=== PATIENT | female | born 1965 | race Caucasian/White ===

== ENCOUNTER 2019-05-07 13:44 | Outpatient (RCR) | payer OTHER, SELFPAY ==
[2019-05-07 13:40] VITALS: BP 156/44; PULSE 68; RESP 20; TEMP 36.7; BMI 58.3
--- NOTE | 2019-05-07 17:01 | HP.PCM_ITS ---
(1) Diabetic ulcer of right foot associated with type 1 diabetes mellitus Status: Chronic Current Visit: Yes Qualifiers: Diabetic foot ulcer location: midfoot Non-pressure ulcer stage: with fat layer exposed Qualified Code(s): E10.621 - Type 1 diabetes mellitus with foot ulcer; L97.412 - Non-pressure chronic ulcer of right heel and midfoot with fat layer exposed Code(s): E10.621 - Type 1 diabetes mellitus with foot ulcer; L97.519 - Non- pressure chronic ulcer of other part of right foot with unspecified severity (2) Diabetic ulcer of toe of left foot associated with type 1 diabetes mellitus Status: Chronic Current Visit: Yes Qualifiers: Non-pressure ulcer stage: with fat layer exposed Qualified Code(s): E10.621 - Type 1 diabetes mellitus with foot ulcer; L97.522 - Non-pressure chronic ulcer of other part of left foot with fat layer exposed Code(s): E10.621 - Type 1 diabetes mellitus with foot ulcer; L97.529 - Non- pressure chronic ulcer of other part of left foot with unspecified severity (3) Ulcer of right lower extremity with fat layer exposed Status: Chronic Current Visit: Yes Code(s): L97.912 - Non-pressure chronic ulcer of unspecified part of right lower leg with fat layer exposed (4) Ulcer of left lower extremity with fat layer exposed Status: Chronic Current Visit: Yes Code(s): L97.922 - Non-pressure chronic ulcer of unspecified part of left lower leg with fat layer exposed (5) Bilateral lower extremity edema Status: Chronic Current Visit: Yes Code(s): R60.0 - Localized edema (6) Type 1 diabetes mellitus Status: Chronic Current Visit: Yes Qualifiers: Diabetes mellitus complication status: with skin complications Diabetes mellitus complication detail: with foot ulcer Qualified Code(s): E10.621 - Type 1 diabetes mellitus with foot ulcer; L97.509 - Non-pressure chronic ulcer o f other part of unspecified foot with unspecified severity Code(s): E10.9 - Type 1 diabetes mellitus without complications (7) Diabetic ulcer of toe of right foot associated with type 1 diabetes mellitus Status: Chronic Current Visit: Yes Qualifiers: Non-pressure ulcer stage: with fat layer exposed Qualified Code(s): E10.621 - Type 1 diabetes mellitus with foot ulcer; L97.512 - Non-pressure chronic ulcer of other part of right foot with fat layer exposed Code(s): E10.621 - Type 1 diabetes mellitus with foot ulcer; L97.519 - Non- pressure chronic ulcer of other part of right foot with unspecified severity (8) PVD (peripheral vascular disease) Status: Chronic Current Visit: Yes Code(s): I73.9 - Peripheral vascular disease, unspecified (9) Morbid obesity with BMI of 50.0-59.9, adult Status: Chronic Current Visit: Yes Code(s): E66.01 - Morbid (severe) obesity due to excess calories; Z68.43 - Body mass index (BMI) 50.0-59.9, adult (10) Excoriation of left lower leg Status: Chronic Current Visit: Yes Qualifiers: Encounter type: initial encounter Qualified Code(s): S80.812A - Abrasion, l eft lower leg, initial encounter Code(s): S80.812A - Abrasion, left lower leg, initial encounter (11) Excoriation of right lower leg Status: Chronic Current Visit: Yes Qualifiers: Encounter type: initial encounter Qualified Code(s): S80.811A - Abrasion, right lower leg, initial encounter Code(s): S80.811A - Abrasion, right lower leg, initial encounter History of Present Illness Date of Service: 05/07/19 Chief Complaint: wounds of bilateral legs and feet History of Wound: Patient is a pleasant 54-year-old female who [facility] for an initial evaluation of open wounds to bilateral lower extremities and feet. Patient reports these wounds have been present for approximately 1 year now. She feels these wounds, as well as the irritation and excoriation of her bilateral lower extremities, presented after the use of Tinactin antifungal spray, which she was using for self treatment of athlete's foot. She was covering wounds with gauze as needed for drainage. Throughout the past year, patient has been primarily homebound. She lives alone. She has difficulty with ambulation. She does not drive, and requires transportation. She struggles to provide self-care, including bathing and grooming. She has neither in the past or present received home health care. She has been living a reclusive lifestyle, until several weeks ago when she decided to reestablish with her primary care provider, Dr. Leslie Lorenzo at [facility]. Dr. Lorenzo placed patient in Unna boots, which patient reports was helpful at reducing the dryness and excoriation of her bilateral lower extremities. She was also started on a 10-day course of doxycycline, and is currently on day #3, which she states has improved the redness and swelling in her legs. Dr. Lorenzo referred the patient to the [facility] for further management of her wounds. The patient reports itching of bilateral lower extremities. She also reports moderate serous drainage from wounds of bilateral lower extremities. The patient denies any fever, chills, nausea, or vomiting. She does report diarrhea as a side effect of the doxycycline. She denies any increasing pain, redness, swelling, or purulent/foul-smelling drainage from affected area. Patient has a past medical history of type 1 diabetes mellitus, with an A1c of 6.7% 2 weeks ago. Significant PMH also includes coronary artery bypass in 2017, hypertension, anxiety, depression, and morbid obesity. She has lab work to be completed next week by her primary care provider, including a CBC, CMP, and lipid panel. Past Medical History Past Medical History: Chronic Problems Ulcer of right lower extremity with fat layer exposed (Chronic) Ulcer of left lower extremity with fat layer exposed (Chronic) Bilateral lower extremity edema (Chronic) Type 1 diabetes mellitus (Chronic) Diabetic ulcer of right foot associated with type 1 diabetes mellitus (Chronic) Diabetic ulcer of toe of left foot associated with type 1 diabetes mellitus (Chronic) Diabetic ulcer of toe of right foot associated with type 1 diabetes mellitus (Chronic) PVD (peripheral vascular disease) (Chronic) Morbid obesity with BMI of 50.0-59.9, adult (Chronic) Excoriation of left lower leg (Chronic) Excoriation of right lower leg (Chronic) Surgical History: coronary bypass surgery - 2017 Allergies/Adverse Reactions: Allergies acetaminophen [From Vicodin] Allergy (Verified 05/08/19 10:53) Unknown hydrocodone [From Vicodin] Allergy (Verified 05/08/19 10:53) Unknown tolnaftate [From Tinactin] Allergy (Verified 05/08/19 10:53) Rash Home Medications: Ambulatory Orders Medication Instructions Recorded Aspirin [Aspir 81] 81 mg PO 05/07/19 Atorvastatin Calcium 20 mg PO 05/07/19 Clopidogrel Bisulfate [Clopidogrel] 75 mg PO 05/07/19 Furosemide [Lasix] 20 mg PO DAILY 05/07/19 Ibuprofen 400 mg PO 05/07/19 Insulin NPH Human Isophane 50 unit SQ 05/07/19 [Novolin N] Insulin Regular, Human [Novolin R] 50 05/07/19 Lisinopril 40 mg PO 05/07/19 Metoprolol Tartrate 50 mg PO 05/07/19 Sertraline HCl 100 mg PO 05/07/19 Smoking Status: Former smoker Review of Systems Constitutional: Denies: Chills, Fever, Weight Change Eyes: Denies: Pain, Vision Change HEENT: Denies: Difficulty Hearing, Difficulty Swallowing, Sinus Congestion Cardiovascular: Denies: Chest Pain, Palpitations Respiratory: Denies: Cough, Shortness of Breath, Wheezing Gastrointestinal: Reports: Diarrhea. Denies: Abdominal Pain, Nausea, Vomiting Genitourinary: Denies: Dysuria, Hematuria Musculoskeletal: Reports: Leg Pain Skin: Reports: Dryness, Pruritis - of BLE, Rash - dry, excoriated skin of BLE, Wounds - of BLE and feet Neurological: Denies: Numbness, Tingling Psychiatric: Reports: Anxiety, Depression Hematologic/ Lymphatic: Denies: Easy Bruising, Easy Bleeding - Physical Exam Vital Signs Temp Pulse Resp BP 98.1 F 68 20 H 156/44 H 05/07/19 13:40 05/07/19 13:40 05/07/19 13:40 05/07/19 13:40 General: Alert, Oriented x3, Cooperative, No apparent distress HEENT: Atraumatic, EOMI, Normocephalic Oral: Moist Mucosa Neck: Supple, No JVD, Trachea Midline Lungs: Clear to auscultation, Normal air movement, No rhonchi, No wheeze, No rales Cardiovascular: Regular rate, Regular Rhythm Abdomen: Bowel Sounds Present, Soft, Non Tender, Obese Extremities: No clubbing, No cyanosis, Capillary Refill Less than 3 Seconds, Diminished Peripheral Pulses, Edema - 1+ pitting edema in BLE Skin: Ulcer/ Wound - Diabetic foot ulcers of left dorsal great toe, right second dorsal toe, and right medial foot. Chronic leg ulcers of medial left lower extremity, medial right lower extremity, and lateral right lower extremity. Diffuse mild erythema and moderate excoriation of bilateral lower extremities. No foul-smelling or purulent drainage from wounds, no warmth to palpation. Bilateral lower extremities are tender to palpation. No tunneling or undermining of wounds, no probing to bone. Wound Measurements and Assessment WC - Nurse 1 - General Ulcer Measurement Start: 05/07/19 13:39 Freq: Status: Active Protocol: Activity Type Activity Date Activity User E-Sign Co-Sign Detail Recorded Client Recorded Date Recorded By Document 05/07/19 13:40 DL [id number] 05/07/19 14:23 DL 05/07/19 13:40 Wound Center Nurse 1 [Ulcer Assessment] #5 LLE Medial -Current Size (cm) - Length 1.7 -Current Size (cm) - Width 0.7 -Current Size (cm) - Depth 0.2 -Total Square Cm 1.19 -Photo Taken Yes -Classification - Thickness Full Thickness without Exposed Support Structure -Exudate Amt Small -Exudate Type Serosanguineous -Wound Margin Indistinct, Non -Visible -Granulation Amt Small (1-33%) -Granulation Quality [place] -Necrosis Amt Large (67-100%) -Necrotic Tissue Type Adherent Slough -Structure Exposed N/A -Texture (Heather-wound Skin Appearance) Scarring -Moisture (Heather-wound Skin Appearance Dry/Scaly ) -Color (Heather-wound Skin Appearance) Erythema, Hemosiderin Staining,Rubor -Temperature (Heather-wound Skin No Abnormality Appearance) (Pt Warm) -Tenderness on Palpation (Heather-wound No Skin Appearance) -Ulcer Cleansing Wound Cleanser -Foul Odor after Cleansing No -Anesthetic Used 4% Lidocaine Solution #4 R 2nd toe Dorsal -Current Size (cm) - Length 0.6 -Current Size (cm) - Width 0.7 -Current Size (cm) - Depth 0.2 -Total Square Cm 0.42 -Photo Taken Yes -Classification - Thickness Full Thickness without Exposed Support Structure -Exudate Amt Small -Exudate Type Serosanguineous -Wound Margin Distinct, Outline Attached -Granulation Amt Medium (34-66%) -Granulation Quality Pale -Necrosis Amt Medium (34-66%) -Necrotic Tissue Type Adherent Slough -Structure Exposed N/A -Texture (Heather-wound Skin Appearance) Scarring -Moisture (Heather-wound Skin Appearance Dry/Scaly ) -Color (Heather-wound Skin Appearance) Hemosiderin Staining -Temperature (Heather-wound Skin No Abnormality Appearance) (Pt Warm) -Tenderness on Palpation (Heather-wound No Skin Appearance) -Ulcer Cleansing Wound Cleanser -Foul Odor after Cleansing No -Anesthetic Used 4% Lidocaine Solution #3 R Foot Med -Current Size (cm) - Length 4.1 -Current Size (cm) - Width 1 -Current Size (cm) - Depth 0.2 -Total Square Cm 4.1 -Photo Taken Yes -Classification - Thickness Full Thickness without Exposed Support Structure -Exudate Amt Small -Exudate Type Serosanguineous -Wound Margin Distinct, Outline Attached -Granulation Amt Large (67-100%) -Granulation Quality Red -Necrosis Amt Small (1-33%) -Necrotic Tissue Type Adherent Slough -Structure Exposed N/A -Texture (Heather-wound Skin Appearance) Scarring -Moisture (Heather-wound Skin Appearance Dry/Scaly ) -Color (Heather-wound Skin Appearance) Hemosiderin Staining -Temperature (Heather-wound Skin No Abnormality Appearance) (Pt Warm) -Tenderness on Palpation (Heather-wound No Skin Appearance) -Ulcer Cleansing Wound Cleanser -Foul Odor after Cleansing No -Anesthetic Used 4% Lidocaine Solution #2 RLE Med -Current Size (cm) - Length 1 -Current Size (cm) - Width 0.4 -Current Size (cm) - Depth 0.2 -Total Square Cm 0.4 -Photo Taken Yes -Classification - Thickness Full Thickness without Exposed Support Structure -Exudate Amt None Present -Wound Margin Thickened -Granulation Amt Large (67-100%) -Granulation Quality [place] -Necrosis Amt Small (1-33%) -Necrotic Tissue Type Adherent Slough -Structure Exposed N/A -Texture (Heather-wound Skin Appearance) Scarring -Moisture (Heather-wound Skin Appearance Dry/Scaly ) -Color (Heather-wound Skin Appearance) Hemosiderin Staining,Rubor -Temperature (Heather-wound Skin No Abnormality Appearance) (Pt Warm) -Tenderness on Palpation (Heather-wound No Skin Appearance) -Ulcer Cleansing Wound Cleanser -Foul Odor after Cleansing No -Anesthetic Used 4% Lidocaine Solution #1 RLE Lat -Current Size (cm) - Length 2.1 -Current Size (cm) - Width 0.5 -Current Size (cm) - Depth 0.1 -Total Square Cm 1.05 -Photo Taken Yes -Classification - Thickness Full Thickness without Exposed Support Structure -Exudate Amt None Present -Wound Margin Distinct, Outline Attached -Granulation Amt None Present (0 %) -Necrosis Amt Large (67-100%) -Necrotic Tissue Type Adherent Slough -Structure Exposed Fat Layer Exposed -Texture (Heather-wound Skin Appearance) Scarring -Moisture (Heather-wound Skin Appearance Dry/Scaly ) -Color (Heather-wound Skin Appearance) Erythema, Hemosiderin Staining -Temperature (Heather-wound Skin No Abnormality Appearance) (Pt Warm) -Tenderness on Palpation (Heather-wound Yes Skin Appearance) -Ulcer Cleansing Wound Cleanser -Foul Odor after Cleansing No -Anesthetic Used 4% Lidocaine Solution [Edema Assessment] -Right Calf (cm) 47.5 -Right Ankle (cm) 24.5 -Left Calf (cm) 48 -Left Ankle (cm) 29.5 WC - Nurse 2 - General Ulcer CM Notes Start: 05/07/19 13:39 Freq: Status: Active Protocol: Activity Type Activity Date Activity User E-Sign Co-Sign Detail Recorded Client Recorded Date Recorded By Document 05/07/19 15:38 DV [id number] 05/07/19 16:04 DV 05/07/19 15:38 Wound Center Nurse 2 [Procedure/Treatment] #6 Left Dorsal Grt Toe -Time 16:01 -Correct Patient Yes -Correct Side, Site, Position Yes -Correct Procedure Yes -Procedure Performed Yes -Type of Procedure Debridement -Clinical Debridement Subcutaneous -Post Debridement Size (cm) - Length 2.0 -Post Debridement Size (cm) - Width 1.0 -Post Debridement Size (cm) - Depth 0.2 -Total Square Cm 2.00 -Wound/Ulcer Outcome Not Healed -Ulcer Cleansing Rinsed/ Irrigated with Saline -Foul Odor after Cleansing No -Bioengineered Tissue No -Bleeding Controlled with Pressure -Offloading No -Treatment Response Procedure Tolerated Well #5 LLE Medial -Time 15:54 -Correct Patient Yes -Correct Side, Site, Position Yes -Correct Procedure Yes -Procedure Performed Yes -Type of Procedure Debridement -Clinical Debridement Subcutaneous -Post Debridement Size (cm) - Length 1.5 -Post Debridement Size (cm) - Width 1.7 -Post Debridement Size (cm) - Depth 0.1 -Total Square Cm 2.55 -Wound/Ulcer Outcome Not Healed -Ulcer Cleansing Rinsed/ Irrigated with Saline -Foul Odor after Cleansing No -Bioengineered Tissue No -Bleeding Controlled with Pressure -Offloading No -Treatment Response Procedure Tolerated Well #4 R 2nd toe Dorsal -Time 15:42 -Correct Patient Yes -Correct Side, Site, Position Yes -Correct Procedure Yes -Procedure Performed Yes -Type of Procedure Debridement -Clinical Debridement Subcutaneous -Post Debridement Size (cm) - Length 0.7 -Post Debridement Size (cm) - Width 1.1 -Post Debridement Size (cm) - Depth 0.2 -Total Square Cm 0.77 -Wound/Ulcer Outcome Not Healed -Ulcer Cleansing Rinsed/ Irrigated with Saline -Foul Odor after Cleansing No -Bioengineered Tissue No -Bleeding Controlled with Pressure -Treatment Response Procedure Tolerated Well #3 R Foot Med -Time 15:39 -Correct Patient Yes -Correct Side, Site, Position Yes -Correct Procedure Yes -Procedure Performed Yes -Type of Procedure Debridement -Clinical Debridement Subcutaneous -Post Debridement Size (cm) - Length 4.5 -Post Debridement Size (cm) - Width 1.2 -Post Debridement Size (cm) - Depth 0.2 -Total Square Cm 5.40 -Wound/Ulcer Outcome Not Healed -Ulcer Cleansing Rinsed/ Irrigated with Saline -Foul Odor after Cleansing No -Bioengineered Tissue No #2 RLE Med -Time 15:48 -Correct Patient Yes -Correct Side, Site, Position Yes -Correct Procedure Yes -Procedure Performed Yes -Type of Procedure Debridement -Clinical Debridement Subcutaneous -Post Debridement Size (cm) - Length 1.1 -Post Debridement Size (cm) - Width 0.5 -Post Debridement Size (cm) - Depth 0.1 -Total Square Cm 0.55 -Wound/Ulcer Outcome Not Healed -Ulcer Cleansing Rinsed/ Irrigated with Saline -Foul Odor after Cleansing No -Bioengineered Tissue No -Bleeding Controlled with Pressure -Offloading No -Treatment Response Procedure Tolerated Well #1 RLE Lat -Time 15:44 -Correct Patient Yes -Correct Side, Site, Position Yes -Correct Procedure Yes -Procedure Performed Yes -Type of Procedure Debridement -Clinical Debridement Subcutaneous -Post Debridement Size (cm) - Length 3.0 -Post Debridement Size (cm) - Width 0.8 -Post Debridement Size (cm) - Depth 0.1 -Total Square Cm 2.40 -Wound/Ulcer Outcome Not Healed -Ulcer Cleansing Rinsed/ Irrigated with Saline -Foul Odor after Cleansing No -Bioengineered Tissue No -Bleeding Controlled with Pressure -Offloading No -Treatment Response Procedure Tolerated Well [See Physician Procedure note for Specifics] Pain Scale: 0-10 Numeric [Pain] -Is Patient Pain Free? Yes Musculoskeletal: Tenderness - Bilateral lower extremities tender to palpation/ manipulation Neurological: Unsteady Gait Psych/Mental Status: Normal Affect, Appropriate Debridement Note Post-Debridement Measurements/Treatment WC - Nurse 2 - General Ulcer CM Notes Start: 05/07/19 13:39 Freq: Status: Active Protocol: Activity Type Activity Date Activity User E-Sign Co-Sign Detail Recorded Client Recorded Date Recorded By Document 05/07/19 15:38 DV [id number] 05/07/19 16:04 DV 05/07/19 15:38 Wound Center Nurse 2 #6 Left Dorsal Grt Toe -Time 16:01 -Correct Patient Yes -Correct Side, Site, Position Yes -Correct Procedure Yes -Procedure Performed Yes -Type of Procedure Debridement -Clinical Debridement Subcutaneous -Post Debridement Size (cm) - Length 2.0 -Post Debridement Size (cm) - Width 1.0 -Post Debridement Size (cm) - Depth 0.2 -Total Square Cm 2.00 -Wound/Ulcer Outcome Not Healed -Ulcer Cleansing Rinsed/ Irrigated with Saline -Foul Odor after Cleansing No -Bioengineered Tissue No -Bleeding Controlled with Pressure -Offloading No -Treatment Response Procedure Tolerated Well #5 LLE Medial -Time 15:54 -Correct Patient Yes -Correct Side, Site, Position Yes -Correct Procedure Yes -Procedure Performed Yes -Type of Procedure Debridement -Clinical Debridement Subcutaneous -Post Debridement Size (cm) - Length 1.5 -Post Debridement Size (cm) - Width 1.7 -Post Debridement Size (cm) - Depth 0.1 -Total Square Cm 2.55 -Wound/Ulcer Outcome Not Healed -Ulcer Cleansing Rinsed/ Irrigated with Saline -Foul Odor after Cleansing No -Bioengineered Tissue No -Bleeding Controlled with Pressure -Offloading No -Treatment Response Procedure Tolerated Well #4 R 2nd toe Dorsal -Time 15:42 -Correct Patient Yes -Correct Side, Site, Position Yes -Correct Procedure Yes -Procedure Performed Yes -Type of Procedure Debridement -Clinical Debridement Subcutaneous -Post Debridement Size (cm) - Length 0.7 -Post Debridement Size (cm) - Width 1.1 -Post Debridement Size (cm) - Depth 0.2 -Total Square Cm 0.77 -Wound/Ulcer Outcome Not Healed -Ulcer Cleansing Rinsed/ Irrigated with Saline -Foul Odor after Cleansing No -Bioengineered Tissue No -Bleeding Controlled with Pressure -Treatment Response Procedure Tolerated Well #3 R Foot Med -Time 15:39 -Correct Patient Yes -Correct Side, Site, Position Yes -Correct Procedure Yes -Procedure Performed Yes -Type of Procedure Debridement -Clinical Debridement Subcutaneous -Post Debridement Size (cm) - Length 4.5 -Post Debridement Size (cm) - Width 1.2 -Post Debridement Size (cm) - Depth 0.2 -Total Square Cm 5.40 -Wound/Ulcer Outcome Not Healed -Ulcer Cleansing Rinsed/ Irrigated with Saline -Foul Odor after Cleansing No -Bioengineered Tissue No #2 RLE Med -Time 15:48 -Correct Patient Yes -Correct Side, Site, Position Yes -Correct Procedure Yes -Procedure Performed Yes -Type of Procedure Debridement -Clinical Debridement Subcutaneous -Post Debridement Size (cm) - Length 1.1 -Post Debridement Size (cm) - Width 0.5 -Post Debridement Size (cm) - Depth 0.1 -Total Square Cm 0.55 -Wound/Ulcer Outcome Not Healed -Ulcer Cleansing Rinsed/ Irrigated with Saline -Foul Odor after Cleansing No -Bioengineered Tissue No -Bleeding Controlled with Pressure -Offloading No -Treatment Response Procedure Tolerated Well #1 RLE Lat -Time 15:44 -Correct Patient Yes -Correct Side, Site, Position Yes -Correct Procedure Yes -Procedure Performed Yes -Type of Procedure Debridement -Clinical Debridement Subcutaneous -Post Debridement Size (cm) - Length 3.0 -Post Debridement Size (cm) - Width 0.8 -Post Debridement Size (cm) - Depth 0.1 -Total Square Cm 2.40 -Wound/Ulcer Outcome Not Healed -Ulcer Cleansing Rinsed/ Irrigated with Saline -Foul Odor after Cleansing No -Bioengineered Tissue No -Bleeding Controlled with Pressure -Offloading No -Treatment Response Procedure Tolerated Well Pain Scale: 0-10 Numeric Is Patient Pain Free? Yes Wound debrided: Left dorsal great toe Laterality: Left Wound Grade/Stage: [place] 1 Type of Debridement: Excisional debridement Anesthesia Used: 5% Lidocaine Gel Depth: in the subcutaneous layer Percentage of wound debrided: 100 Instrument Used: 5mm curette Tissue Removed: Slough and devitalized tissue Severity: Fat Layer Exposed Amount of bleeding with debridement: Mild Bleeding Controlled with: Compression and gauze Patient tolerated procedure well - Additional Wound Wound debrided: LLE medial Laterality: Left Type of Debridement: Excisional debridement Anesthesia Used: 5% Lidocaine Gel Depth: in the subcutaneous layer Percentage of wound debrided: 100 Instrument Used: 5mm curette Tissue Removed: Slough and devitalized tissue Severity: Fat Layer Exposed Amount of bleeding with debridement: Mild Bleeding Controlled with: Compression and gauze Patient tolerated procedure: Patient tolerated procedure well - Additional Wound Wound debrided: Right second toe dorsal Laterality: Right Wound Grade/Stage: [place] 1 Type of Debridement: Excisional debridement Anesthesia Used: 5% Lidocaine Gel Depth: in the subcutaneous layer Percentage of wound debrided: 100 Instrument Used: 5mm curette Tissue Removed: Slough and devitalized tissue Severity: Fat Layer Exposed Amount of bleeding with debridement: Mild Bleeding Controlled with: Compression and gauze Patient tolerated procedure: Patient tolerated procedure well - Additional Wound Wound debrided: Right medial foot Laterality: Right Wound Grade/Stage: [place] 1 Type of Debridement: Excisional debridement Anesthesia Used: 4% Lidocaine Solution, 5% Lidocaine Gel Depth: in the subcutaneous layer Percentage of wound debrided: 100 Instrument Used: 5mm curette Severity: Fat Layer Exposed Amount of bleeding with debridement: Mild Bleeding Controlled with: Compression and gauze Patient tolerated procedure: Patient tolerated procedure well - Additional Wound Wound debrided: RLE medial Laterality: Right Type of Debridement: Excisional debridement Anesthesia Used: 5% Lidocaine Gel Depth: in the subcutaneous layer Percentage of wound debrided: 100 Instrument Used: 5mm curette Tissue Removed: Slough and devitalized tissue Severity: Fat Layer Exposed Amount of bleeding with debridement: Mild Bleeding Controlled with: Compression and gauze Patient tolerated procedure: Patient tolerated procedure well - Additional Wound Wound debrided: RLE lateral Laterality: Right Type of Debridement: Excisional debridement Anesthesia Used: 5% Lidocaine Gel Depth: in the subcutaneous layer Percentage of wound debrided: 100 Instrument Used: 5mm curette Tissue Removed: Slough and devitalized tissue Severity: Fat Layer Exposed Amount of bleeding with debridement: Mild Bleeding Controlled with: Compression and gauze Patient tolerated procedure: Patient tolerated procedure well Assessment/Plan Active Problems Ulcer of right lower extremity with fat layer exposed (Chronic) Ulcer of left lower extremity with fat layer exposed (Chronic) Bilateral lower extremity edema (Chronic) Type 1 diabetes mellitus (Chronic) Diabetic ulcer of right foot associated with type 1 diabetes mellitus (Chronic) Diabetic ulcer of toe of left foot associated with type 1 diabetes mellitus (Chronic) Diabetic ulcer of toe of right foot associated with type 1 diabetes mellitus (Chronic) PVD (peripheral vascular disease) (Chronic) Morbid obesity with BMI of 50.0-59.9, adult (Chronic) Excoriation of left lower leg (Chronic) Excoriation of right lower leg (Chronic) Assessment: Ulcer of right lower extremity with fat layer exposed, chronic. Ulcer of left lower extremity with fat layer exposed, chronic. DFU of right foot associated with T1DM, chronic. DFU toe of left foot associated with T1DM, chronic. DFU toe of right foot associated with T1DM, chronic. Excoriation of bilateral lower extremities, chronic. PVD, chronic. Bilateral lower extremity edema, chronic. Type 1 diabetes mellitus, chronic Plan: Debridement performed today in clinic as annotated above. Aquacel Ag applied to all ulcers. At home wound-care instructions: Patient instructed to change dressing daily with Aquacel Ag. May remove dressings to shower, and replace with clean dressing. May gently wash periwound areas with warm soapy water, rinsing well and patting dry before applying a clean dressing. support group manager, Dolly Vasquez, will look into insurance coverage of home health care for assistance in bathing, grooming, and wound care. Compression: Tubigrips applied today at wound clinic. Continue use at home. Will await results of vascular studies to further guide compression therapy. Off-loading: Avoid pressure at sites of wounds. Avoid shoes that apply pressure to affected areas of feet. Discussed with patient the importance of obtaining diabetic shoes to prevent further injury/wounds. Keep feet and legs elevated as much as possible, at or above waist level. Avoid prolonged standing, or dangling of legs. Diet: Patient encouraged to increase protein and vitamin C intake while taking caution to avoid high carbohydrate and/or sugar intake. Labs/cultures/imaging: Cultures deferred today due to symptomatic improvement with use of oral doxycycline. Finish course of doxycycline as directed. Routine baseline labwork added to blood work orders from PCP. Vascular studies ordered, scheduled for 05/28/2019. Follow-up: Return to clinic in 1 week for re-evaluation. Return sooner or report to the emergency room should symptoms worsen, or new symptoms arise. Note: [employer] speech recognition logistician software was used to create portions of this document. Sound-alike and misspelled words, as well as other logistician errors may be contained in the documentation. Code Visit Office Visits / Consults: 46476 OV L4 New [id number]: [id number] Maggie subq tissue 20 sq cm/<
== END 2019-05-10 23:59 ==
LOC: WC 13:44
PROVIDERS: Visit Provider Nurse Practitioner Family
DX: E10.621 Type 1 diabetes mellitus with foot ulcer (principal); L97.412 Non-pressure chronic ulcer of right heel and midfoot with fat layer exposed; E10.51 Type 1 diabetes mellitus with diabetic peripheral angiopathy without gangrene; E66.01 Morbid (severe) obesity due to excess calories; Z68.43 Body mass index [BMI] 50.0-59.9, adult; S80.811A Abrasion, right lower leg, initial encounter; X58.XXXA Exposure to other specified factors, initial encounter; I10 Essential (primary) hypertension; F41.9 Anxiety disorder, unspecified; F32.9 Major depressive disorder, single episode, unspecified; Z79.899 Other long term (current) drug therapy; Z79.02 Long term (current) use of antithrombotics/antiplatelets; Z87.891 Personal history of nicotine dependence
CPT/HCPCS: 11042; 11045; 99203; G0463

== ENCOUNTER 2019-06-04 15:00 | Outpatient (RCR) | payer OTHER, SELFPAY ==
[2019-05-11 01:17] VITALS: BP 156/44; PULSE 68; RESP 20; TEMP 36.7
--- NOTE | 2019-06-04 13:06 | VDLE_ITS ---
Reason For Study: edema RIGHT LEFT FV is compressible, spontaneous, phasic, FV is compressible, spontaneous, phasic, competent and demonstrates normal competent and demonstrates normal augmentation. augmentation. POP V is compressible, spontaneous, phasic, POP V is compressible, spontaneous, phasic, competent and demonstrates normal competent and demonstrates normal augmentation. augmentation. T/P Trunk is compressible. T/P Trunk is compressible. PTV is compressible. PTV is compressible. RT PerV is compressible. LT PerV is compressible. GSV proximal thigh measures .24 x .23 cm. GSV proximal thigh measures .37 x .35 cm. GSV at knee measures .25 x .27 cm. GSV at knee measures .29 x .32 cm. GSV is competent throughout. GSV is competent throughout. SSV proximal calf is competent and SSV proximal calf is competent and measures .26 x .24 cm. measures .41 x .45 cm. Procedure Exam performed in department. The exam was of fair technical quality due to pt body habitus. Limited views of veins due to pt body habitus. Interpretation Summary Deep veins of the lower extremities are bilaterally patent and compressible segmentally. There is no evidence of deep vein thrombosis on either side. Valvular competence appears intact within the proximal deep venous systems bilaterally. The great saphenous veins appear bilaterally patent and compressible segmentally. The common femoral veins and sapheno-femoral junctions were not visualized on either side due to the patient's body habitus. Valvular competence appears to be intact segmentally within the great saphenous veins bilaterally. Small saphenous veins are patent and competent bilaterally. Ordering Physician: Bronwyn Bernard Performed By: Arden Haq RVT
--- NOTE | 2019-06-04 13:10 | ART_ITS ---
Reason For Study: PVD Procedure A bilateral lower extremity continuous wave Doppler with analog waveform analysis,segmental pressures,and ankle brachial indexes without exercise. Left Segmental Pressures Left brachial= 188mmHg. Left thigh = 204mmHg. Left calf = 138mmHg. Left posterior tibial artery = 117mmHg. Left dorsalis pedis artery = 120mmHg. Left digit = 106 mmHg. The left dorsalis pedis waveforms are biphasic. The left posterior tibial artery waveforms are biphasic. Right Segmental Pressures Right brachial= 187mmHg. Right calf = 127mmHg. Right posterior tibial artery = 141mmHg. Right dorsalis pedis artery = 113mmHg. Right digit = 70 mmHg. The right dorsalis pedis waveforms are biphasic. The right posterior tibial artery waveforms are biphasic. Low thigh is noncompressible. Indices The right ankle brachial index by the dorsalis pedis is .6. The right ankle brachial index by the posterior tibial artery is .75. The right digital-brachial index is .37. The left ankle brachial index by the dorsalis pedis is .64. The left ankle brachial index by the posterior tibial artery is .62. The left digital-brachial index is .56. Interpretation Summary Biphasic Doppler waveforms are noted at ankle level bilaterally. Pulse-volume recordings appear satisfactory at all levels bilaterally. Resting ankle-brachial indices are moderately diminished bilaterally. The right digital-brachial index is moderately diminished. The left digital-brachial index is mildly to moderately diminished. There is evidence of moderate, multi-segmental arterial occlusive disease in the lower extremities bilaterally. Ordering Physician: Bronwyn Bernard Performed By: EVER WARNER Jamar
[2019-06-04 14:53] VITALS: BP 194/58; PULSE 73; RESP 22; TEMP 37.1; BMI 58.3
--- NOTE | 2019-06-04 17:08 | PCM.WC.PN ---
(1) Bilateral lower extremity edema Status: Chronic Current Visit: Yes Code(s): R60.0 - Localized edema (2) Diabetic ulcer of right foot associated with type 1 diabetes mellitus Status: Chronic Current Visit: Yes Qualifiers: Diabetic foot ulcer location: midfoot Non-pressure ulcer stage: with fat layer exposed Qualified Code(s): E10.621 - Type 1 diabetes mellitus with foot ulcer; L97.412 - Non-pressure chronic ulcer of right heel and midfoot with fat layer exposed Code(s): E10.621 - Type 1 diabetes mellitus with foot ulcer; L97.519 - Non-pressure chronic ulcer of other part of right foot with unspecified severity (3) Diabetic ulcer of toe of left foot associated with type 1 diabetes mellitus Status: Chronic Current Visit: No Qualifiers: Non-pressure ulcer stage: with fat layer exposed Qualified Code(s): E10.621 - Type 1 diabetes mellitus with foot ulcer; L97.522 - Non-pressure chronic ulcer of other part of left foot with fat layer exposed Code(s): E10.621 - Type 1 diabetes mellitus with foot ulcer; L97.529 - Non-pressure chronic ulcer of other part of left foot with unspecified severity (4) Diabetic ulcer of toe of right foot associated with type 1 diabetes mellitus Status: Chronic Current Visit: No Qualifiers: Non-pressure ulcer stage: with fat layer exposed Qualified Code(s): E10.621 - Type 1 diabetes mellitus with foot ulcer; L97.512 - Non-pressure chronic ulcer of other part of right foot with fat layer exposed Code(s): E10.621 - Type 1 diabetes mellitus with foot ulcer; L97.519 - Non-pressure chronic ulcer of other part of right foot with unspecified severity (5) Morbid obesity with BMI of 50.0-59.9, adult Status: Chronic Current Visit: No Code(s): E66.01 - Morbid (severe) obesity due to excess calories; Z68.43 - Body mass index (BMI) 50.0-59.9, adult (6) PVD (peripheral vascular disease) Status: Chronic Current Visit: Yes Code(s): I73.9 - Peripheral vascular disease, unspecified (7) Type 1 diabetes mellitus Status: Chronic Current Visit: Yes Qualifiers: Diabetes mellitus complication status: with skin complications Diabetes mellitus complication detail: with foot ulcer Qualified Code(s): E10.621 - Type 1 diabetes mellitus with foot ulcer; L97.509 - Non-pressure chronic ulcer of other part of unspecified foot with unspecified severity Code(s): E10.9 - Type 1 diabetes mellitus without complications (8) Ulcer of left lower extremity with fat layer exposed Status: Chronic Current Visit: Yes Code(s): L97.922 - Non-pressure chronic ulcer of unspecified part of left lower leg with fat layer exposed (9) Ulcer of right lower extremity with fat layer exposed Status: Resolved Current Visit: Yes Code(s): L97.912 - Non-pressure chronic ulcer of unspecified part of right lower leg with fat layer exposed (10) Arterial occlusive disease Status: Chronic Current Visit: Yes Code(s): I70.90 - Unspecified atherosclerosis Type of Wound Date of Service: 06/04/19 Chief Complaint: wounds of bilateral legs and feet History of Wound: Patient is a pleasant 54-year-old female who [facility] for an initial evaluation of open wounds to bilateral lower extremities and feet. Patient reports these wounds have been present for approximately 1 year now. She feels these wounds, as well as the irritation and excoriation of her bilateral lower extremities, presented after the use of Tinactin antifungal spray, which she was using for self treatment of athlete's foot. She was covering wounds with gauze as needed for drainage. Throughout the past year, patient has been primarily homebound. She lives alone. She has difficulty with ambulation. She does not drive, and requires transportation. She struggles to provide self-care, including bathing and grooming. She has neither in the past or present received home health care. She has been living a reclusive lifestyle, until several weeks ago when she decided to reestablish with her primary care provider, Dr. Leslie Lorenzo at [facility]. Dr. Lorenzo placed patient in Unna boots, which patient reports was helpful at reducing the dryness and excoriation of her bilateral lower extremities. She was also started on a 10-day course of doxycycline, and is currently on day #3, which she states has improved the redness and swelling in her legs. Dr. Lorenzo referred the patient to the [facility] for further management of her wounds. The patient reports itching of bilateral lower extremities. She also reports moderate serous drainage from wounds of bilateral lower extremities. The patient denies any fever, chills, nausea, or vomiting. She does report diarrhea as a side effect of the doxycycline. She denies any increasing pain, redness, swelling, or purulent/foul-smelling drainage from affected area. Patient has a past medical history of type 1 diabetes mellitus, with an A1c of 6.7% 2 weeks ago. Significant PMH also includes coronary artery bypass in 2017, hypertension, anxiety, depression, and morbid obesity. She has lab work to be completed next week by her primary care provider, including a CBC, CMP, and lipid panel. Progress of Wound: Today is patient's first follow-up appointment since 05/07/2019. RLE medial and RLE lateral ulcers are healed today. Patient states she has been compliant with daily Aquacel Ag dressing changes, and use of double Tubigrip's. She has not yet completed to the lab work which was ordered by her primary care provider, so these results are not yet available. She did complete her vascular studies prior to today's appointment. Arterial studies (06/04/2019) showed the following: Right AZAR (DP) 0.6, (PT) 0.75; right DBI 0.37. Left AZAR (DP) 0.64, (PT) 0.62; left DBI 0.56. There is evidence of moderate, multisegmental arterial occlusive disease in the lower extremities bilaterally. (See report for full details.) Venous studies (06/04/2019) showed the following: The common femoral veins and saphenofemoral junctions were not visualized on either side due to patient's body habitus, however deep veins of the lower extremities are bilaterally patent and compressible segmentally, and there is no evidence of DVT on either side. Valvular competence appears intact within the proximal deep venous system bilaterally. (See report for full details.) Cultures were not collected at last visit due to clinical improvement with oral doxycycline. Antibiotics have been completed. The patient denies any fever, chills, nausea, vomiting, or diarrhea. Denies any signs of infection, including increasing pain, redness, swelling, or drainage from affected area. - Physical Exam Vital Signs Temp Pulse Resp BP 98.7 F 73 22 H 194/58 H 06/04/19 14:53 06/04/19 14:53 06/04/19 14:53 06/04/19 14:53 General: Alert, Oriented x3, Cooperative, No apparent distress HEENT: Atraumatic, EOMI, Normocephalic Oral: Moist Mucosa Neck: Supple, No JVD, Trachea Midline Lungs: Normal air movement Cardiovascular: Regular rate Abdomen: Obese Extremities: No clubbing, No cyanosis, Capillary Refill Less than 3 Seconds, Diminished Peripheral Pulses, Edema - 1+ pitting edema in bilateral lower extremities, - - Neuropathy to bilateral lower extremities Skin: Ulcer/ Wound - Diabetic foot ulcers of left dorsal great toe, right second dorsal toe, and right medial foot. Chronic leg ulcer of medial left lower extremity. Medial right lower extremity and lateral right lower extremity ulcers are healed today. No heather-ulcer erythema. No purulent or foul-smelling drainage from any ulcers. Mild diffuse excoriation of bilateral lower extremities. No warmth to palpation. Bilateral lower extremities are tender to palpation. No tunneling or undermining, nor probing to bone of any ulcers. Wound Measurements and Assessment WC - Nurse 1 - General Ulcer Measurement Start: 06/04/19 14:53 Freq: Status: Active Protocol: Activity Type Activity Date Activity User E-Sign Co-Sign Detail Recorded Client Recorded Date Recorded By Document 06/04/19 14:53 DL [id number] 06/04/19 15:11 DL 06/04/19 14:53 Wound Center Nurse 1 [Ulcer Assessment] #6 Left Dorsal Grt Toe -Current Size (cm) - Length 0.7 -Current Size (cm) - Width 0.4 -Current Size (cm) - Depth 0.1 -Total Square Cm 0.28 -Photo Taken No -Exudate Amt Small -Exudate Type Serous -Wound Margin Thickened -Granulation Amt Small (1-33%) -Granulation Quality [place] -Necrosis Amt Small (1-33%) -Necrotic Tissue Type Adherent Slough -Structure Exposed N/A -Texture (Heather-wound Skin Appearance) Scarring -Moisture (Heather-wound Skin Appearance Maceration ) -Color (Heather-wound Skin Appearance) Erythema,Rubor -Temperature (Heather-wound Skin No Abnormality Appearance) (Pt Warm) -Tenderness on Palpation (Heather-wound No Skin Appearance) -Ulcer Cleansing Wound Cleanser -Foul Odor after Cleansing No -Anesthetic Used 4% Lidocaine Solution #5 LLE Medial -Current Size (cm) - Length 0.5 -Current Size (cm) - Width 0.4 -Current Size (cm) - Depth 0.1 -Total Square Cm 0.20 -Photo Taken No -Exudate Amt None Present -Wound Margin Thickened -Granulation Amt Small (1-33%) -Granulation Quality [place] -Necrosis Amt Small (1-33%) -Necrotic Tissue Type Adherent Slough -Structure Exposed N/A -Texture (Heather-wound Skin Appearance) Scarring -Moisture (Heather-wound Skin Appearance Dry/Scaly ) -Color ([place]-wound Skin Appearance) Hemosiderin Staining -Temperature (Heather-wound Skin No Abnormality Appearance) (Pt Warm) -Tenderness on Palpation (Heather-wound No Skin Appearance) -Ulcer Cleansing Wound Cleanser -Foul Odor after Cleansing No -Anesthetic Used 4% Lidocaine Solution #4 R 2nd toe Dorsal -Current Size (cm) - Length 0.3 -Current Size (cm) - Width 0.6 -Current Size (cm) - Depth 0.1 -Total Square Cm 0.18 -Photo Taken No -Exudate Amt Small -Exudate Type Serosanguineous -Wound Margin Distinct, Outline Attached -Granulation Amt Small (1-33%) -Granulation Quality [place] -Necrosis Amt Small (1-33%) -Necrotic Tissue Type Adherent Slough -Structure Exposed N/A -Texture (Heather-wound Skin Appearance) Scarring -Moisture (Heather-wound Skin Appearance Maceration ) -Color (Heather-wound Skin Appearance) Hemosiderin Staining -Temperature (Heather-wound Skin No Abnormality Appearance) (Pt Warm) -Tenderness on Palpation (Heather-wound No Skin Appearance) -Ulcer Cleansing Wound Cleanser -Foul Odor after Cleansing No -Anesthetic Used 4% Lidocaine Solution #3 R Foot Med -Current Size (cm) - Length 3.7 -Current Size (cm) - Width 0.8 -Current Size (cm) - Depth 0.1 -Total Square Cm 2.96 -Photo Taken No -Exudate Amt Small -Exudate Type Serosanguineous -Wound Margin Distinct, Outline Attached -Granulation Amt Medium (34-66%) -Granulation Quality [place] -Necrosis Amt Medium (34-66%) -Necrotic Tissue Type Adherent Slough -Structure Exposed N/A -Texture (Heather-wound Skin Appearance) Scarring -Moisture (Heather-wound Skin Appearance Dry/Scaly ) -Color (Heather-wound Skin Appearance) Erythema -Temperature (Heather-wound Skin No Abnormality Appearance) (Pt Warm) -Tenderness on Palpation (Heather-wound No Skin Appearance) -Ulcer Cleansing Wound Cleanser -Foul Odor after Cleansing No -Anesthetic Used 4% Lidocaine Solution #2 RLE Med -Current Size (cm) - Length 0.1 -Current Size (cm) - Width 0.1 -Current Size (cm) - Depth 0.1 -Total Square Cm 0.01 -Photo Taken No -Exudate Amt None Present -Wound Margin Flat & Intact -Granulation Amt Small (1-33%) -Granulation Quality [place] -Necrosis Amt Small (1-33%) -Necrotic Tissue Type Adherent Slough -Structure Exposed N/A -Texture (Heather-wound Skin Appearance) Scarring -Moisture (Heather-wound Skin Appearance Dry/Scaly ) -Color (Heather-wound Skin Appearance) Hemosiderin Staining -Temperature (Heather-wound Skin No Abnormality Appearance) (Pt Warm) -Tenderness on Palpation (Heather-wound No Skin Appearance) -Ulcer Cleansing Wound Cleanser -Foul Odor after Cleansing No -Anesthetic Used 4% Lidocaine Solution #1 RLE Lat -Current Size (cm) - Length 0 -Current Size (cm) - Width 0 -Current Size (cm) - Depth 0 -Total Square Cm 0 -Photo Taken Yes -Exudate Amt None Present -Wound Margin Flat & Intact -Granulation Amt Large (67-100%) -Granulation Quality [place] -Necrosis Amt None Present (0 %) -Structure Exposed N/A -Texture (Heather-wound Skin Appearance) Scarring -Moisture (Heather-wound Skin Appearance Dry/Scaly ) -Color (Heather-wound Skin Appearance) Hemosiderin Staining -Temperature (Heather-wound Skin No Abnormality Appearance) (Pt Warm) -Tenderness on Palpation (Heather-wound No Skin Appearance) -Ulcer Cleansing Wound Cleanser -Foul Odor after Cleansing No [Edema Assessment] -Right Calf (cm) 47 -Right Ankle (cm) 29.5 -Left Calf (cm) 50.5 -Left Ankle (cm) 30.6 WC - Nurse 2 - General Ulcer CM Notes Start: 06/04/19 14:53 Freq: Status: Active Protocol: Activity Type Activity Date Activity User E-Sign Co-Sign Detail Recorded Client Recorded Date Recorded By Document 06/04/19 16:11 DV [id number] 06/04/19 16:26 DV 06/04/19 16:11 Wound Center Nurse 2 [Procedure/Treatment] #6 Left Dorsal Grt Toe -Time 16:13 -Correct Patient Yes -Correct Side, Site, Position Yes -Correct Procedure Yes -Procedure Performed Yes -Type of Procedure Debridement -Clinical Debridement Subcutaneous -Post Debridement Size (cm) - Length 0.5 -Post Debridement Size (cm) - Width 0.4 -Post Debridement Size (cm) - Depth 0.2 -Total Square Cm 0.20 -Wound/Ulcer Outcome Not Healed -Ulcer Cleansing Rinsed/ Irrigated with Saline -Foul Odor after Cleansing No -Bioengineered Tissue No -Bleeding Controlled with Pressure -Offloading No -Treatment Response Procedure Tolerated Well #5 LLE Medial -Time 16:14 -Correct Patient Yes -Correct Side, Site, Position Yes -Correct Procedure Yes -Procedure Performed Yes -Type of Procedure Debridement -Clinical Debridement Subcutaneous -Post Debridement Size (cm) - Length 1.0 -Post Debridement Size (cm) - Width 0.8 -Post Debridement Size (cm) - Depth 0.1 -Total Square Cm 0.80 -Wound/Ulcer Outcome Not Healed -Ulcer Cleansing Rinsed/ Irrigated with Saline -Foul Odor after Cleansing No -Bioengineered Tissue No -Bleeding Controlled with Pressure -Offloading No -Treatment Response Procedure Tolerated Well #4 R 2nd toe Dorsal -Time 16:11 -Correct Patient Yes -Correct Side, Site, Position Yes -Correct Procedure Yes -Procedure Performed Yes -Type of Procedure Debridement -Clinical Debridement Subcutaneous -Post Debridement Size (cm) - Length 0.5 -Post Debridement Size (cm) - Width 0.7 -Post Debridement Size (cm) - Depth 0.1 -Total Square Cm 0.35 -Wound/Ulcer Outcome Not Healed -Ulcer Cleansing Rinsed/ Irrigated with Saline -Foul Odor after Cleansing No -Bioengineered Tissue No -Bleeding Controlled with Pressure -Offloading No -Treatment Response Procedure Tolerated Well #3 R Foot Med -Time 16:11 -Correct Patient Yes -Correct Side, Site, Position Yes -Correct Procedure Yes -Procedure Performed Yes -Type of Procedure Debridement -Clinical Debridement Subcutaneous -Post Debridement Size (cm) - Length 4.0 -Post Debridement Size (cm) - Width 1.0 -Post Debridement Size (cm) - Depth 0.2 -Total Square Cm 4.00 -Wound/Ulcer Outcome Not Healed -Ulcer Cleansing Rinsed/ Irrigated with Saline -Foul Odor after Cleansing No -Bioengineered Tissue No -Bleeding Controlled with Pressure -Offloading No -Treatment Response Procedure Tolerated Well #2 RLE Med -Time 16:22 -Correct Patient Yes -Correct Side, Site, Position Yes -Correct Procedure No -Procedure Performed No -Post Debridement Size (cm) - Length 0 -Post Debridement Size (cm) - Width 0 -Post Debridement Size (cm) - Depth 0 -Total Square Cm 0 -Wound/Ulcer Outcome Healed- Epithelialized #1 RLE Lat -Time 16:22 -Correct Patient Yes -Correct Side, Site, Position Yes -Correct Procedure No -Procedure Performed No -Post Debridement Size (cm) - Length 0 -Post Debridement Size (cm) - Width 0 -Post Debridement Size (cm) - Depth 0 -Total Square Cm 0 -Wound/Ulcer Outcome Healed- Epithelialized [See Physician Procedure note for Specifics] Musculoskeletal: Tenderness - Bilateral lower extremities tender to palpation/manipulation Neurological: Unsteady Gait Psych/Mental Status: Normal Affect, Appropriate Debridement Note Post-Debridement Measurements/Treatment WC - Nurse 2 - General Ulcer CM Notes Start: 06/04/19 14:53 Freq: Status: Active Protocol: Activity Type Activity Date Activity User E-Sign Co-Sign Detail Recorded Client Recorded Date Recorded By Document 06/04/19 16:11 DV [id number] 06/04/19 16:26 DV 06/04/19 16:11 Wound Center Nurse 2 #6 Left Dorsal Grt Toe -Time 16:13 -Correct Patient Yes -Correct Side, Site, Position Yes -Correct Procedure Yes -Procedure Performed Yes -Type of Procedure Debridement -Clinical Debridement Subcutaneous -Post Debridement Size (cm) - Length 0.5 -Post Debridement Size (cm) - Width 0.4 -Post Debridement Size (cm) - Depth 0.2 -Total Square Cm 0.20 -Wound/Ulcer Outcome Not Healed -Ulcer Cleansing Rinsed/ Irrigated with Saline -Foul Odor after Cleansing No -Bioengineered Tissue No -Bleeding Controlled with Pressure -Offloading No -Treatment Response Procedure Tolerated Well #5 LLE Medial -Time 16:14 -Correct Patient Yes -Correct Side, Site, Position Yes -Correct Procedure Yes -Procedure Performed Yes -Type of Procedure Debridement -Clinical Debridement Subcutaneous -Post Debridement Size (cm) - Length 1.0 -Post Debridement Size (cm) - Width 0.8 -Post Debridement Size (cm) - Depth 0.1 -Total Square Cm 0.80 -Wound/Ulcer Outcome Not Healed -Ulcer Cleansing Rinsed/ Irrigated with Saline -Foul Odor after Cleansing No -Bioengineered Tissue No -Bleeding Controlled with Pressure -Offloading No -Treatment Response Procedure Tolerated Well #4 R 2nd toe Dorsal -Time 16:11 -Correct Patient Yes -Correct Side, Site, Position Yes -Correct Procedure Yes -Procedure Performed Yes -Type of Procedure Debridement -Clinical Debridement Subcutaneous -Post Debridement Size (cm) - Length 0.5 -Post Debridement Size (cm) - Width 0.7 -Post Debridement Size (cm) - Depth 0.1 -Total Square Cm 0.35 -Wound/Ulcer Outcome Not Healed -Ulcer Cleansing Rinsed/ Irrigated with Saline -Foul Odor after Cleansing No -Bioengineered Tissue No -Bleeding Controlled with Pressure -Offloading No -Treatment Response Procedure Tolerated Well #3 R Foot Med -Time 16:11 -Correct Patient Yes -Correct Side, Site, Position Yes -Correct Procedure Yes -Procedure Performed Yes -Type of Procedure Debridement -Clinical Debridement Subcutaneous -Post Debridement Size (cm) - Length 4.0 -Post Debridement Size (cm) - Width 1.0 -Post Debridement Size (cm) - Depth 0.2 -Total Square Cm 4.00 -Wound/Ulcer Outcome Not Healed -Ulcer Cleansing Rinsed/ Irrigated with Saline -Foul Odor after Cleansing No -Bioengineered Tissue No -Bleeding Controlled with Pressure -Offloading No -Treatment Response Procedure Tolerated Well #2 RLE Med -Time 16:22 -Correct Patient Yes -Correct Side, Site, Position Yes -Correct Procedure No -Procedure Performed No -Post Debridement Size (cm) - Length 0 -Post Debridement Size (cm) - Width 0 -Post Debridement Size (cm) - Depth 0 -Total Square Cm 0 -Wound/Ulcer Outcome Healed- Epithelialized #1 RLE Lat -Time 16:22 -Correct Patient Yes -Correct Side, Site, Position Yes -Correct Procedure No -Procedure Performed No -Post Debridement Size (cm) - Length 0 -Post Debridement Size (cm) - Width 0 -Post Debridement Size (cm) - Depth 0 -Total Square Cm 0 -Wound/Ulcer Outcome Healed- Epithelialized Wound debrided: Left dorsal great toe Laterality: Left Wound Grade/Stage: Grade 1 Type of Debridement: Excisional debridement Anesthesia Used: 5% Lidocaine Gel Depth: in the subcutaneous layer Percentage of wound debrided: 100 Instrument Used: 3mm curette Tissue Removed: Slough and devitalized tissue Severity: Fat Layer Exposed Amount of bleeding with debridement: Mild Bleeding Controlled with: Pressure Patient tolerated procedure well - Additional Wound Wound debrided: LLE medial Laterality: Left Type of Debridement: Excisional debridement Anesthesia Used: 5% Lidocaine Gel Depth: in the subcutaneous layer Percentage of wound debrided: 100 Instrument Used: 5mm curette Tissue Removed: Slough and devitalized tissue Severity: Fat Layer Exposed Amount of bleeding with debridement: Mild Bleeding Controlled with: Pressure Patient tolerated procedure: Patient tolerated procedure well - Additional Wound Wound debrided: Right second toe dorsal Laterality: Right Wound Grade/Stage: Grade 1 Type of Debridement: Excisional debridement Anesthesia Used: 5% Lidocaine Gel Depth: in the subcutaneous layer Percentage of wound debrided: 100 Instrument Used: 3mm curette Tissue Removed: Slough and devitalized tissue Severity: Fat Layer Exposed Amount of bleeding with debridement: Mild Bleeding Controlled with: Pressure Patient tolerated procedure: Patient tolerated procedure well - Additional Wound Wound debrided: Right medial foot Laterality: Right Wound Grade/Stage: Grade 1 Type of Debridement: Excisional debridement Anesthesia Used: 5% Lidocaine Gel Depth: in the subcutaneous layer Percentage of wound debrided: 100 Instrument Used: 5mm curette Tissue Removed: Slough and devitalized tissue Severity: Fat Layer Exposed Amount of bleeding with debridement: Mild Bleeding Controlled with: Pressure Patient tolerated procedure: Patient tolerated procedure well Assessment/Plan Active Problems Ulcer of left lower extremity with fat layer exposed (Chronic) Bilateral lower extremity edema (Chronic) Type 1 diabetes mellitus (Chronic) Diabetic ulcer of right foot associated with type 1 diabetes mellitus (Chronic) PVD (peripheral vascular disease) (Chronic) Arterial occlusive disease (Chronic) Assessment: 1. Ulcer of right lower extremity with fat layer exposed, chronic--healed. 2. Ulcer of left lower extremity with fat layer exposed, chronic. 3. DFU of right foot associated with T1DM, chronic. 4. DFU toe of left foot associated with T1DM, chronic. 5. DFU toe of right foot associated with T1DM, chronic. 6. Excoriation of bilateral lower extremities, chronic. 7. PVD, chronic. 8. Bilateral lower extremity edema, chronic. 9. Type 1 diabetes mellitus, chronic Plan: Debridement performed today in clinic as annotated above. RLE medial and RLE lateral ulcers healed today. Aquacel Ag applied to all remaining ulcers. At home wound-care instructions: Patient instructed to change dressing daily with Aquacel Ag. May remove dressings to shower, and replace with clean dressing. May gently wash periwound areas with warm soapy water, rinsing well and patting dry before applying a clean dressing. enterprise project manager, Dolly Vasquez, will look into insurance coverage of home health care for assistance in bathing, grooming, and wound care--status pending. Compression: Tubigrips applied today at wound clinic. Continue use at home. Off-loading: Avoid pressure at sites of wounds. Avoid shoes that apply pressure to affected areas of feet. Discussed with patient the importance of obtaining diabetic shoes to prevent further injury/wounds. Keep feet and legs elevated as much as possible, at or above waist level. Avoid prolonged standing, or dangling of legs. Patient is to avoid ambulating barefooted in home. Patient reports she cannot ambulate in postop shoes, due to previous falls while wearing them. Diet: Patient encouraged to increase protein and vitamin C intake while taking caution to avoid high carbohydrate and/or sugar intake. Labs/cultures/imaging: She has not yet completed to the lab work which was ordered by her primary care provider, so these results are not yet available. She did complete her vascular studies prior to today's appointment. Results were discussed with patient at today's appointment 06/04/2019. Arterial studies (06/04/2019) showed the following: Right AZAR (DP) 0.6, (PT) 0.75; right DBI 0.37. Left AZAR (DP) 0.64, (PT) 0.62; left DBI 0.56. There is evidence of moderate, multisegmental arterial occlusive disease in the lower extremities bilaterally. (See report for full details.) Venous studies (06/04/2019) showed the following: The common femoral veins and saphenofemoral junctions were not visualized on either side due to patient's body habitus, however deep veins of the lower extremities are bilaterally patent and compressible segmentally, and there is no evidence of DVT on either side. Valvular competence appears intact within the proximal deep venous system bilaterally. (See report for full details.) Cultures were not collected at last visit due to clinical improvement with oral doxycycline. Antibiotics have been completed. Follow-up: Return to clinic 06/14/2019 for re-evaluation. Return sooner or report to the emergency room should symptoms worsen, or new symptoms arise. Note: [employer] speech recognition athletics teacher software was used to create portions of this document. Sound-alike and misspelled words, as well as other athletics teacher errors may be contained in the documentation. Code Visit 111xxx-113xx: 06242 Maggie subq tissue 20 sq cm/<
== END 2019-06-08 23:59 ==
LOC: WC 15:00
PROVIDERS: Referring Provider Nurse Practitioner Family; Visit Provider Nurse Practitioner Family
DX: E10.621 Type 1 diabetes mellitus with foot ulcer (principal); L97.412 Non-pressure chronic ulcer of right heel and midfoot with fat layer exposed; E10.51 Type 1 diabetes mellitus with diabetic peripheral angiopathy without gangrene; R60.0 Localized edema; E66.01 Morbid (severe) obesity due to excess calories; Z68.43 Body mass index [BMI] 50.0-59.9, adult; Z71.3 Dietary counseling and surveillance; S80.811A Abrasion, right lower leg, initial encounter; X58.XXXA Exposure to other specified factors, initial encounter; L97.522 Non-pressure chronic ulcer of other part of left foot with fat layer exposed; L97.512 Non-pressure chronic ulcer of other part of right foot with fat layer exposed; L97.422 Non-pressure chronic ulcer of left heel and midfoot with fat layer exposed; R52 Pain, unspecified
CPT/HCPCS: 11042; 93923; 93970